=== PATIENT | male | born 1950 | race Two or more races ===

== ENCOUNTER 2021-04-26 09:35 | Emergency (ER) | payer MEDICARE ==
[~2021-04-26] VITALS: Ht 172.7 cm; Wt 90.0 kg
[2021-04-26 10:40] VITALS: BP 187/86
[2021-04-26] MEDS: HYDROcodone/acetaminophen 5mg/325mg tablet PO ONE (12:20)
== END 2021-04-26 12:58 | disposition home or self-care (01) ==
LOC: ER 09:35
DX: S82.202A Unspecified fracture of shaft of left tibia, initial encounter for closed fracture (principal); S82.402A Unspecified fracture of shaft of left fibula, initial encounter for closed fracture; W05.0XXA Fall from non-moving wheelchair, initial encounter; Z91.81 History of falling; Y93.89 Activity, other specified; Y92.89 Other specified places as the place of occurrence of the external cause; Y99.8 Other external cause status
CPT/HCPCS: 29505; 73560; 73590; 99284

== ENCOUNTER 2021-06-18 12:47 | Emergency (ER) | payer OTHER, MEDICARE ==
[~2021-06-18] VITALS: Ht 172.7 cm; Wt 77.3 kg
[2021-06-18 12:50] VITALS: BP 146/65
[2021-06-18] MEDS ORDERED: SILV50CR31 TOP (15:14)
[2021-06-18] MEDS ORDERED: silver sulfadiazine cream 50gm TP ONE (15:15)
== END 2021-06-18 16:19 | disposition home or self-care (01) ==
LOC: ER 12:47
DX: S90.922A Unspecified superficial injury of left foot, initial encounter (principal); Z60.2 Problems related to living alone; Z79.899 Other long term (current) drug therapy; W05.0XXA Fall from non-moving wheelchair, initial encounter; Y93.89 Activity, other specified; Y92.89 Other specified places as the place of occurrence of the external cause; Y99.8 Other external cause status
CPT/HCPCS: 73650; 99283

== ENCOUNTER 2021-07-06 11:22 | Day surgery (SDC) | payer MEDICARE, OTHER ==
[2021-07-06] VITALS (12 sets, daily range): BP systolic 135–167; BP diastolic 77–101
[~2021-07-06] VITALS: Ht 175.3 cm; Wt 77.3 kg
[~2021-07-06 11:22] MED LIST: ATEN-169 PO; DOCUMENT DATE & TIME OF BETA-BLOCKER PO ONE; DOXY150T3 PO; cefazolin/dext.iso 2gm/50ml IV ONE; famotidine 20mg tablet PO ONE; ringers solution, lacted 1,000 ML IV SCH
[2021-07-06] MEDS ORDERED: cloNIDine hcl/PF 100mcg/ml inj ONE (12:44)
[2021-07-06] MEDS ORDERED: fentaNYL/PF 50MCG/1 ML 2ML syringe IV PRN ×2 (13:00)
[2021-07-06] MEDS ORDERED: hydrALAZINE 20mg/ml inj. IV PRN (13:00)
[2021-07-06] MEDS ORDERED: ringers solution, lacted 1,000 ML IV SCH (13:00)
[2021-07-06] MEDS ORDERED: meperidine/PF 25mg/ml syringe IV PRN (13:00)
[2021-07-06] MEDS ORDERED: acetaminophen 1,000mg/100ml IV 100 ML IV PRN (13:00)
[2021-07-06] MEDS ORDERED: labetalol 20mg/4ml (5mg/ml) syringe IV PRN (13:00)
[2021-07-06] MEDS ORDERED: ondansetron/PF 4mg/2ml inj IV PRN (13:00)
[2021-07-06] MEDS ORDERED: midazolam 1 mg/ML 2ml injection ONE (14:28)
[2021-07-06] MEDS ORDERED: propofol inj 20 ML IV ONE ×3 (14:28)
--- NOTE | 2021-07-06 15:34 | NUR ---
Received from OR via [facility], accompanied by Anesthesiologist DR ANGEL and report given by Anesthesiologist. 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 LEFT LEG FROM ABOVE KNEE TO BEGINNING OF TOES W/AN WRAP COVERING INCISION/DRSG CDI. 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 Addendum: 07/06/21 at 1602 by Ro Hernandez RN Amended: Links added.
--- NOTE | 2021-07-06 17:24 | NUR ---
PT CONSUMED BURRITO W/O ANY DIFFICULTY, TOLERATING ORAL FLUIDS, VOIDED X 3. D/C INSTRUCTIONS GIVEN AND GONE OVER W/PT WHO VERBALIZED UNDERSTANDING. PT ABLE TO DRESS HIMSELF AND GET IN AND OUT OF HIS W/C W/O ANY DIFFICULTY. PT D/CD TO HOME VIA W/C TO PRIVATE VEHICLE W/O INCIDENT. Addendum: 07/06/21 at 1757 by Ro Hernandez RN Amended: Links added.
== END 2021-07-06 17:24 | disposition home or self-care (01) ==
LOC: PAS 11:22
PROVIDERS: ATTEND Orthopaedic Surgery Orthopaedic Trauma
DX: S82.392A Other fracture of lower end of left tibia, initial encounter for closed fracture (principal); I10 Essential (primary) hypertension; G82.20 Paraplegia, unspecified; Z98.890 Other specified postprocedural states; Z79.899 Other long term (current) drug therapy; X58.XXXA Exposure to other specified factors, initial encounter; Y92.89 Other specified places as the place of occurrence of the external cause; Y93.89 Activity, other specified; Y99.8 Other external cause status
CPT/HCPCS: 27759; 73590; 76000; A6222; A6223; C1713; J0690; J0735; J2250; J2704; J7030; J7120; Z7506; Z7508; Z7512; A4618; A6449; A7000